=== PATIENT | female | born 1930 | race Caucasian/White ===

== ENCOUNTER → 2016-11-20 | Outpatient (CLI) | payer MEDICARE, OTHER ==
[2016-11-20 10:56] LABS: HEMOGLOBIN 12.6 g/dL (12.0-15.5)
[2016-11-20 10:57] LABS: HEMATOCRIT 37.9 % (36.0-47.0)
[2016-11-20 11:14] LABS: ALBUMIN 4.2 g/dL (3.4-5.0); CALCIUM 9.4 mg/dL (8.5-10.1); CREATININE 1.3 mg/dL (0.6-1.0); GFR 38.7; MAGNESIUM 1.6 mg/dL (1.8-2.4); PHOSPHORUS 3.6 mg/dL (2.6-4.7); POTASSIUM 4.1 mmol/L (3.5-5.1); URIC ACID 6.7 mg/dL (2.6-6.0)
[2016-11-20 18:11] LABS: CALCIUM PTH 9.5 mg/dL (8.7-10.3); CREATININE PTH 1.18 mg/dL (0.57-1.00); PTH INTACT 54 pg/mL (15-65)
[2016-11-22 13:38] LABS: CLARITY,URINE CLEAR; COLOR,URINE YELLOW
[2016-11-22 13:39] LABS: BACTERIA,URINE FEW /HPF (0-FEW); BILIRUBIN,URINE NEG (NEG); GLUCOSE,URINE NEG (NEG); NITRITE,URINE NEG (NEG); SQUAMOUS EPITHELIAL CELL,UR FEW /LPF; UROBILINOGEN,URINE 0.2 mg/dL (0.2 mg/dL)
[2016-11-23 05:13] LABS: MICRO CREAT RATIO 36.3 mg/g creat (0.0-30.0); MICROALB RD UR 14.9 ug/mL (Not Estab.); UR PROTEIN RD 7.7 mg/dL (Not Estab.)
== END | disposition home or self-care (01) ==
LOC: LAB 10:20
PROVIDERS: ATTEND Internal Medicine Nephrology
DX: N18.3 Chronic kidney disease, stage 3 (moderate) (principal); D64.9 Anemia, unspecified
CPT/HCPCS: 36415; 80069; 81001; 82607; 82728; 83540; 83550; 83735; 83970; 84550; 85014; 85018